=== PATIENT | female | born 2000 | race Caucasian/White ===

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

== ENCOUNTER 2022-02-13 11:47 | Emergency (ER) | payer BC, SELFPAY ==
--- NOTE | ~2022-02-13 | XR_ITS ---
XR foot RT min 3V 02/13/2022 12:23 INDICATION: Right foot pain PROCEDURE: 4 views right foot COMPARISON: No prior studies for comparison. FINDINGS: Fracture, dislocation or subluxation is not identified. The soft tissues appear within norm al limits. No foreign bodies are identified. IMPRESSION: 1: NO ACUTE BONE OR JOINT ABNORMALITY IDENTIFIED. Reviewed, dictated and finalized at location A.
--- NOTE | 2022-02-13 11:58 | ED.GENADULT ---
HPI - General Adult General Chief complaint: Extremity Problem,Nontraumatic Stated complaint: right foot pain, left ear mole Time Seen by Provider: 02/13/22 11:59 Source: patient, RN notes reviewed and old records reviewed Mode of arrival: ambulatory Limitations: no limitations History of Present Illness HPI narrative: 21 year old female who presents to [facility] care with complaints of pain to her right foot since Wednesday to the arch of foot. Patient denies any injury to her foot and states that pain increases with walking. Patient reports that she wears flip flops most of the time. Patient also states mole on her left earlobe that she has had for several month and wants it looked at. No pain to area where mole located, no irritation around mole or any bleeding noted patient states no pain to site. Patient reports that she has taken some Ibuprofen for her right foot pain.Poor historian. complaint: complaints of right foot pain Onset (ago): day(s) (4) Location: right and lower extremity (arch of foot) Treatments prior to arrival: NSAID Related Data Home Medications Medication Instructions Recorded Confirmed medroxyprogesterone 150 mg/mL 150 mg IM [id number] 02/06/21 08/14/21 intramuscular suspension (Depo-Provera) Allergies Allergy/AdvReac Type Severity Reaction Status Date / Time No Known Allergies Allergy Verified 02/13/22 11:58 Review of Systems Review of Systems: CONSTITUTIONAL: Denies fever, chills, or sweats. EYES: Denies visual changes, redness, or discharge. ENT: Denies rhinorrhea, congestion, sore throat, or otalgia. CARDIOVASCULAR: Denies chest pain, palpitations, or edema. RESPIRATORY: Denies cough or dyspnea. GASTROINTESTINAL: Denies abdominal pain, nausea, vomiting, or diarrhea. GENITOURINARY: Denies dysuria or hematuria. SKIN: Denies rash or itching.has mole to the left ear lobe MUSCULOSKELETAL: Denies back pain,positive for right foot pain in plantar arch region, or myalgia. NEUROLOGIC: Denies headache, numbness, or weakness. PSYCHIATRIC: Positive for history of anxiety or depression. All systems reviewed & are unremarkable except as noted in HPI and below PMFSH Past Medical History Medical History Anxiety and depression Depression with anxiety Eczema of eyelid Family history of hypothyroidism GERD without esophagitis Insomnia Irritable bowel syndrome with diarrhea Seasonal allergies Unilateral congenital absence of kidney Family History Family History Father Depression Anxiety Mother Diabetes mellitus Thyroid condition Grandparent Hypertension Anxiety Depression Heart disease Social History Social History Social History: Patient lives with her mother and brother in [place]. She is a senior at [employer], she plans to attend [employer] in , studying education. Alcohol intake: never Substance use: never Substance use type: does not use Agree to blood products: Yes Comments At time of signature, agree with nursing past medical, surgical, social and family history. There is no relevant family history pertinent to the presenting complaint Exam Narrative: GENERAL: Well-appearing, well-nourished, and in no acute distress. HEAD: Normocephalic, atraumatic. EYES: PERRLA and EOMI. ENT: Nares clear, no rhinorrhea or epistaxis. Mucous membranes moist.TM's normal with good light reflex, throat pink with no lesions or exudate no tonsil swelling. NECK: Supple.no lymphadenopathy CHEST: Clear to auscultation. No respiratory distress. HEART: Regular rate and rhythm. No murmur heard. Normal peripheral pulses. ABDOMEN: Soft, nontender, nondistended, normal active bowel sounds. EXTREMITIES: Normal range of motion. No edema noted, Pain to arch of her right foot which increases with ambula
[2022-02-13 12:00] VITALS: BP 145/93; PULSE 102; RESP 16; TEMP 36.6; O2SAT 100
== END 2022-02-13 13:04 | disposition home or self-care (01) ==
PROVIDERS: Emergency Provider Registered Nurse; PCP Nurse Practitioner Family
DX: M72.2 Plantar fascial fibromatosis (principal); D22.22 Melanocytic nevi of left ear and external auricular canal; K21.9 Gastro-esophageal reflux disease without esophagitis; Q60.0 Renal agenesis, unilateral
CPT/HCPCS: 73630; 99213; G0463

== ENCOUNTER 2023-08-25 15:08 | Outpatient (CLI) | payer BC, SELFPAY ==
[2023-08-25 17:54] LABS: Basophils Absolute Auto 0.1 K/mm3 (0.0-0.1); Basophils Percent Auto 0.7 % (0.2-1.2); Eosinophils Absolute Auto 0.4 K/mm3 (0-0.3); Eosinophils Percent Auto 3.6 % (0-4.4); Hematocrit 43.2 % (37.0-47.0); Hemoglobin 13.6 g/dL (12.0-15.0); Immature Granulocyte Absolute 0.04 K/mm3 (0.00-0.031); Immature Granulocyte Percent A 0.4 % (0-0.5); Lymphocytes Absolute Auto 2.87 K/mm3 (0.9-3.2); Lymphocytes Percent Auto 28.3 % (18.3-44.2); Mean Corpuscular HGB Conc 31.5 g/dl (32-36); Mean Corpuscular Volume 88.9 fl (80-100); Mean Platelet Volume 11.8 fl (7.4-10.4); Monocytes Absolute Auto 0.8 K/mm3 (0.1-0.6); Monocytes Percent Auto 8.2 % (2.6-8.5); Neutrophils Percent Auto 58.8 % (45.5-73.1); Platelet Count Result 244 k/mm3 (150-375); Red Blood Count 4.86 M/mm3 (4.2-5.4); Red Cell Distribution Width 13.2 % (11.5-14.5); White Blood Count 10.2 K/mm3 (4.5-10.0)
[2023-08-25 18:49] LABS: Alanine Aminotransferase 25 U/L (6-35); Albumin Level 4.4 g/dL (3.5-5.1); Alkaline Phosphatase 109 U/L (38-126); Anion Gap 9 mmol/L (8-16); Aspartate Amino Transferase 50 U/L (14-36); Bilirubin,Total 0.4 mg/dL (0.2-1.3); Blood Urea Nitrogen 11 mg/dL (7-17); Calcium 9.5 mg/dL (8.4-10.2); Carbon Dioxide 26 mmol/L (22-30); Chloride 108 mmol/L (98-107); Estimated Glomerular Filt Rate > 60; Glucose 68 mg/dL (65-110); Sodium 143 mmol/L (137-145)
[2023-08-25 19:11] LABS: Vitamin D 25 Hydroxy 26.2 ng/mL
== END 2023-08-25 15:09 | disposition home or self-care (01) ==
LOC: ANHGOSHLAB 15:09
PROVIDERS: PCP Family Medicine; Visit Provider Nurse Practitioner Family
DX: Z00.00 Encounter for general adult medical examination without abnormal findings (principal); F41.8 Other specified anxiety disorders; K58.0 Irritable bowel syndrome with diarrhea; R25.2 Cramp and spasm; R42 Dizziness and giddiness; E55.9 Vitamin D deficiency, unspecified; E53.8 Deficiency of other specified B group vitamins
CPT/HCPCS: 36415; 80053; 82306; 82607; 83735; 85025

== ENCOUNTER 2024-01-21 01:58 | Day surgery (SDC) | payer BC, SELFPAY ==
[2024-01-07 12:23] VITALS: BMI 38.9
[2024-01-21 12:56] VITALS: BP 121/79; PULSE 92; RESP 16; TEMP 36.6; O2SAT 100
[2024-01-21] MEDS: LACTATED RINGERS 1,000 ML 150 ML IV CONT (13:11)
--- NOTE | 2024-01-21 14:10 | PM.HPGS ---
History of Present Illness History of Present Illness Consent: Risks, benefits, and alternatives have been discussed and questions answered. Patient agrees to proceed with procedure. Chief complaint: Noninfective gastroenteritis and colitis, unspecif Narrative: Zandra Carrion is a 23 year old female here for first colonoscopy, h/o chronic diarrhea prescribed colestipol Review of Systems Review of Systems: All systems reviewed & are unremarkable except as noted in HPI and below PMFSH Past Medical History Medical History Anxiety Anxiety and depression B12 deficiency Chronic vertigo Depression with anxiety Eczema of eyelid Family history of hypothyroidism GERD without esophagitis IBS (irritable bowel syndrome) Infrequent bowel movements Insomnia Irritable bowel syndrome with diarrhea Lesion of earlobe Seasonal allergies Unilateral congenital absence of kidney Vertigo Family History Family History Father Depression Anxiety Mother Diabetes mellitus Thyroid condition Grandparent Hypertension Anxiety Depression Heart disease Social History Social History Social History: Patient lives with her mother and brother in [place]. She is a senior at [employer], she plans to attend [employer] in , studying education. Smoking status: Never smoker Alcohol intake: never Substance use: never Substance use type: does not use Lack of Transportation: No Lack of Food: Never True Current Housing: I Have Housing Concerned About Future Housing: No Difficulty Paying Gas/Electric Bills: No Difficulty Paying for Meds: No Currently Unemployed: No Education: High School Diploma/GED Difficulty w/ Childcare or Family Care: No Living arrangements: with family Occupation/Education: student Spiritual care concerns: No Agree to blood products: Yes Meds Home Medications and Allergies Home Medications Medication Instructions Recorded Confirmed Type medroxyprogesterone 150 mg/mL 150 mg IM [id number] 02/06/21 01/21/24 History intramuscular suspension (Depo-Provera) buspirone 5 mg tablet 5 mg PO BID PRN anxiety #60 tabs 08/25/23 01/21/24 Rx escitalopram oxalate 10 mg tablet 10 mg PO DAILY #90 tabs 12/03/23 01/21/24 Rx (Lexapro) mirtazapine 15 mg tablet 15 mg PO DAILY 12/03/23 01/21/24 History colestipol 1 gram tablet 1 g PO BID #60 tabs 12/17/23 01/21/24 Rx Allergies Allergy/AdvReac Type Severity Reaction Status Date / Time No Known Allergies Allergy Verified 01/21/24 12:49 Vital Signs Vital Signs - 24 hr 01/21/24 12:56 Temperature 97.8 F Pulse Rate 92 Respiratory Rate 16 Blood Pressure 121/79 Pulse Oximetry 100 Oxygen Delivery Room Air Exam Const: General: comfortable and no acute distress HENMT: Face/Nose/Sinus: Normal nares present Eyes: General: appearance normal, both eyes and all related structures Neck: Neck: no JVD Resp: Auscultation: clear to auscultation bilaterally Cardio: Rate: regular rate Rhythm: regular rhythm GI: Inspection: non-distended GI Palp: Yes Soft to palpation Skin: General skin exam: normal color Neuro: General: gait normal Speech: normal speech Extrem: General: normal to inspection Psych: Mental Status: mental status grossly normal Assessment and Plan Assessment and plan (1) Chronic diarrhea: Code(s): K52.9 - Noninfective gastroenteritis and colitis, unspecified Status: Acute Assessment and Plan: colonoscopy
--- NOTE | 2024-01-21 14:11 | WPDANESEPPF ---
Anes - Initial Pre Proc Eval Procedure: Operation Date: 01/21/24 14:00 Proposed Procedures p Colonoscopy - Moody Maria MD Date/Time: 01/21/24 14:11 Surgeon: Moody Maria MD Pre Op Diagnosis: Noninfective gastroenteritis and colitis, unspecif Patient Data Age: 23 Gender: F Height: 1.78 m Weight: 119.6 kg Last Vital Signs Temp 97.8 F 01/21/24 12:56 Pulse 92 01/21/24 12:56 Resp 16 01/21/24 12:56 BP 121/79 01/21/24 12:56 Pulse Ox 100 01/21/24 12:56 O2 Del Method Room Air 01/21/24 12:56 Allergies Allergy/AdvReac Type Severity Reaction Status Date / Time No Known Allergies Allergy Verified 01/21/24 12:49 Home Medications Medication Instructions Recorded Confirmed Type medroxyprogesterone 150 mg/mL 150 mg IM [id number] 02/06/21 01/21/24 History intramuscular suspension (Depo-Provera) buspirone 5 mg tablet 5 mg PO BID PRN anxiety #60 tabs 08/25/23 01/21/24 Rx escitalopram oxalate 10 mg tablet 10 mg PO DAILY #90 tabs 12/03/23 01/21/24 Rx (Lexapro) mirtazapine 15 mg tablet 15 mg PO DAILY 12/03/23 01/21/24 History colestipol 1 gram tablet 1 g PO BID #60 tabs 12/17/23 01/21/24 Rx Patient hx anesthesia problems: none Family hx anesthesia problems: none Results Review: All pre-operative results and documents have been reviewed as part of the pre-operative evaluation. FOR[facility]LY [facility], [facility] Past Medical History Medical History Anxiety Anxiety and depression B12 deficiency Chronic vertigo Depression with anxiety Eczema of eyelid Family history of hypothyroidism GERD without esophagitis IBS (irritable bowel syndrome) Infrequent bowel movements Insomnia Irritable bowel syndrome with diarrhea Lesion of earlobe Seasonal allergies Unilateral congenital absence of kidney Vertigo Family History Family History Father Depression Anxiety Mother Diabetes mellitus Thyroid condition Grandparent Hypertension Anxiety Depression Heart disease Social History Social History Social History: Patient lives with her mother and brother in [place]. She is a senior at [employer], she plans to attend [employer] in , studying education. Smoking status: Never smoker Alcohol intake: never Substance use: never Substance use type: does not use Lack of Transportation: No Lack of Food: Never True Current Housing: I Have Housing Concerned About Future Housing: No Difficulty Paying Gas/Electric Bills: No Difficulty Paying for Meds: No Currently Unemployed: No Education: High School Diploma/GED Difficulty w/ Childcare or Family Care: No Living arrangements: with family Occupation/Education: student Spiritual care concerns: No Agree to blood products: Yes Anes - Eval Final PreProcedure Day of Procedure 01/21/24 14:11 Patient weight: morbidly obese Heart: regular rate and rhythm Lungs: clear to auscultation Airway: Mallampati scale class II Neurological: alert and oriented Last oral intake: >/= 8 hours ASA classification: III Emergent: no Anesthetic plan: proceed Anesthesia type and monitoring: general GIVS and standard monitoring Results Review: All pre-operative results and documents have been reviewed as part of the pre-operative evaluation. Informed Consent: The patient's anesthetic plan and its attendant risks and benefits were discussed with the patient/family/POA. Questions were solicited and answers provided to the satisfaction of the patient/family/POA.
[2024-01-21 14:33] VITALS: BP 107/52; PULSE 77; RESP 22; O2SAT 100
[2024-01-21 14:43] VITALS: BP 85/62; PULSE 67; RESP 20; O2SAT 100
[2024-01-21 14:53] VITALS: BP 109/85; PULSE 83; RESP 26; O2SAT 100
[2024-01-21 15:03] VITALS: BP 120/76; PULSE 76; RESP 22; O2SAT 100
== END 2024-01-21 15:05 | disposition home or self-care (01) ==
PROVIDERS: PCP Nurse Practitioner Family; Referring Provider Nurse Practitioner; Visit Provider Internal Medicine Gastroenterology
PROC: 0DJD8ZZ Inspection of Lower Intestinal Tract, Via Natural or Artificial Opening Endoscopic (ICD-10-PCS; CPT 45378; principal; 2024-01-21 14:00)
DX: K58.0 Irritable bowel syndrome with diarrhea (principal); K64.8 Other hemorrhoids; F41.8 Other specified anxiety disorders
CPT/HCPCS: 45380; 88305; J2001; J2704; J7120

== ENCOUNTER 2024-05-02 17:35 | Emergency (ER) | payer BC, SELFPAY ==
--- NOTE | ~2024-05-02 | CT_ITS ---
EXAMINATION: CT abdomen pelvis w con DATE: 05/02/2024 20:47 INDICATION: RLQ tenderness TECHNIQUE: Computed tomography (CT) of the abdomen and pelvis was performed with 100 mL Omnipaque-350 intravenous contrast. Automated exposure control and iterative reconstruction technique were employe d. The dose-length product was 1488.47 mGy-cm. COMPARISON: None. FINDINGS: Lower thorax: Unremarkable Liver: Normal. Biliary/Gallbladder: Gallbladder is normal. No bile duct dilation. Pancreas: No mass or duct dilation. Spleen: Normal. Adrenals:No mass. Kidneys: No suspicious mass, obstructing stone, or hydronephrosis. Absent left kidney. GI tract: No small or large bowel dilation. Normal appendix. Mesentery/Peritoneum: No ascites, mass, or free air. Retroperitoneum: No mass. Pelvis: Pelvic organs are within normal limits. Soft Tissues: Small uncomplicated fat-containing umbilical hernia. Bones: No acute osseous finding. IMPRESSION: No acute abdominal pelvic process detected. Reviewed, dictated and finalized at location K.
[2024-05-02 17:40] VITALS: BP 144/91; PULSE 100; RESP 20; TEMP 36.3; O2SAT 100
[2024-05-02 20:00] LABS: BEDSIDEPREGUCG Negative (Negative)
[2024-05-02 20:06] LABS: Basophils Percent Auto 0.5 % (0.2-1.2); Eosinophils Absolute Auto 0.7 K/mm3 (0-0.3); Eosinophils Percent Auto 10.9 % (0-4.4); Hematocrit 43.6 % (37.0-47.0); Hemoglobin 14.3 g/dL (12.0-15.0); Immature Granulocyte Absolute 0.02 K/mm3 (0.00-0.031); Immature Granulocyte Percent A 0.3 % (0-0.5); Lymphocytes Absolute Auto 1.66 K/mm3 (0.9-3.2); Lymphocytes Percent Auto 25.9 % (18.3-44.2); Mean Corpuscular HGB Conc 32.8 g/dl (32-36); Mean Corpuscular Hemoglobin 29.1 pg (26-34); Mean Corpuscular Volume 88.8 fl (80-100); Mean Platelet Volume 11.2 fl (7.4-10.4); Monocytes Absolute Auto 0.8 K/mm3 (0.1-0.6); Monocytes Percent Auto 12.8 % (2.6-8.5); Neutrophils Absolute Auto 3.2 K/mm3 (1.3-6.7); Neutrophils Percent Auto 49.6 % (45.5-73.1); Platelet Count Result 234 k/mm3 (150-375); Red Blood Count 4.91 M/mm3 (4.2-5.4); Red Cell Distribution Width 13.2 % (11.5-14.5); White Blood Count 6.4 K/mm3 (4.5-10.0)
[2024-05-02 20:10] LABS: Add Urine Microscopic? YES; Appearance Urine Cloudy (Clear); Bacteria Urine 4+ /hpf; Bilirubin Urine Negative (Negative); Blood Urine Negative (Negative); Color Urine Dark Yellow (Yellow); Glucose Urine UA Negative (Negative); Ketones Urine Negative (Negative); Leukocyte Esterase Ur 1+ LEU/UL (Negative); Nitrate Urine Negative (Negative); Non Pathogenic Casts 0-2; Protein Urine 1+ mg/dL (Negative); RBC Urine 0-2 /hpf (0-2); Specific Grav Ur 1.027 (1.001-1.035); Squamous Epithelial Cell Urine Many /hpf (Few)
--- NOTE | 2024-05-02 20:10 | ED.DIZZY ---
HPI - Dizziness General Chief Complaint: Dizziness Stated Complaint: dizziness, nausea, vomiting Time Seen by Provider: 05/02/24 19:47 History of Present Illness HPI Narrative: Patient is a 23-year-old female presenting with vomiting, diarrhea, lightheadedness. States that she was started on buspirone approximately 5 days ago and since that time she has had a lot of vomiting and diarrhea. States that since yesterday she has felt lightheaded with standing. She was seen by urgent care today and they advised that she come in for further evaluation. She denies any pain. Denies dysuria or hematuria. Does complain of a cough and runny nose. Related Data Home Medications Medication Instructions Recorded Confirmed medroxyprogesterone 150 mg/mL 150 mg IM [id number] 02/06/21 04/13/24 intramuscular suspension (Depo-Provera) mirtazapine 15 mg tablet 15 mg PO DAILY 12/03/23 04/13/24 Allergies Allergy/AdvReac Type Severity Reaction Status Date / Time No Known Allergies Allergy Verified 04/13/24 09:39 Review of Systems Review of Systems: All systems reviewed & are unremarkable except as noted in HPI and below PMFSH Past Medical History Medical History Anxiety Anxiety and depression B12 deficiency Chronic vertigo Depression with anxiety Eczema of eyelid Family history of hypothyroidism GERD without esophagitis IBS (irritable bowel syndrome) Infrequent bowel movements Insomnia Irritable bowel syndrome with diarrhea Lesion of earlobe Seasonal allergies Unilateral congenital absence of kidney Vertigo Family History Family History Father Depression Anxiety Mother Diabetes mellitus Thyroid condition Grandparent Hypertension Anxiety Depression Heart disease Social History Social History Social History: Patient lives with her mother and brother in [place]. She is a senior at [employer], she plans to attend [employer] in , studying education. Smoking status: Never smoker Alcohol intake: never Substance use: never Substance use type: does not use Lack of Transportation: No Lack of Food: Never True Current Housing: I Have Housing Concerned About Future Housing: No Difficulty Paying Gas/Electric Bills: No Difficulty Paying for Meds: No Currently Unemployed: No Education: High School Diploma/GED Difficulty w/ Childcare or Family Care: No Living arrangements: with family Occupation/Education: student Spiritual care concerns: No Agree to blood products: Yes Exam Narrative: GENERAL: Nontoxic, no acute distress, pleasant cooperative HEAD: Normocephalic, atraumatic. EYES: PERRLA and EOMI. ENT: Mucous membranes moist. NECK: Supple. CHEST: Clear to auscultation. No respiratory distress. HEART: Regular rate and rhythm ABDOMEN: Soft, + right lower quadrant and suprapubic tenderness without guarding or rebound EXTREMITIES: Normal range of motion. No edema. SKIN: Warm, dry, no rash. NEURO: No focal deficits. Alert and oriented x3. PSYCH: Normal mood and affect. Course Vital Signs Vital signs: Vital Signs Temperature 97.4 F L 05/02/24 17:40 Pulse Rate 100 05/02/24 17:40 Respiratory Rate 20 05/02/24 17:40 Blood Pressure 144/91 H 05/02/24 17:40 Pulse Oximetry 100 05/02/24 17:40 Oxygen Delivery Room Air 05/02/24 17:40 Temperature 97.4 F L 05/02/24 17:40 Pulse Rate 100 05/02/24 17:40 Respiratory Rate 20 05/02/24 17:40 Blood Pressure 144/91 H 05/02/24 17:40 Pulse Oximetry 100 05/02/24 17:40 Oxygen Delivery Room Air 05/02/24 17:40 MDM - Dizziness MDM Narrative Medical decision making narrative: 23-year-old female presenting with vomiting, diarrhea. She is mildly tender in her right lower quadrant on exam.
[2024-05-02] MEDS: SODIUM CHLORIDE 0.9% IV 1,000 ML 999 ML IV CONT (20:12)
[2024-05-02 20:13] LABS: Alanine Aminotransferase 27 U/L (6-35); Albumin Level 5.1 g/dL (3.5-5.1); Alkaline Phosphatase 100 U/L (38-126); Anion Gap 14 mmol/L (4-12); Aspartate Amino Transferase 29 U/L (14-36); Bilirubin,Total 0.4 mg/dL (0.2-1.3); Blood Urea Nitrogen 11 mg/dL (7-17); Calcium 9.5 mg/dL (8.4-10.2); Carbon Dioxide 24 mmol/L (22-30); Chloride 101 mmol/L (98-107); Estimated CRCL calculation 135 ml/min; Estimated Glomerular Filt Rate > 60; Glucose 109 mg/dL (65-110); Lipase 128 U/L (23-300); Potassium 3.8 mmol/L (3.4-5.0); Sodium 139 mmol/L (137-145)
[2024-05-02] MEDS: ONDANSETRON INJ 4 MG/2 ML VIAL IV PUSH (20:20)
[2024-05-02 20:41] VITALS: BP 140/88; PULSE 102; RESP 20; O2SAT 100
[2024-05-02 21:29] LABS: Influenza A QL RT-PCR Negative (Negative); Influenza B QL RT-PCR Negative (Negative); RSV RNA, RT-PCR Negative (Negative); SARS-CoV-2 RNA PCR Positive (Negative)
== END 2024-05-02 22:01 | disposition home or self-care (01) ==
PROVIDERS: Emergency Provider Emergency Medicine; PCP Nurse Practitioner Family
DX: U07.1 COVID-19 (principal); R11.2 Nausea with vomiting, unspecified; R19.7 Diarrhea, unspecified; E53.8 Deficiency of other specified B group vitamins; K21.9 Gastro-esophageal reflux disease without esophagitis; K58.0 Irritable bowel syndrome with diarrhea; F41.8 Other specified anxiety disorders; Q60.0 Renal agenesis, unilateral; Z79.899 Other long term (current) drug therapy
CPT/HCPCS: 36415; 74177; 80053; 81001; 81025; 83690; 85025; 87086; 87088; 87637; 96361; 96374; 99284; J2405; J7030; Q9967

== ENCOUNTER 2024-06-26 15:16 | Emergency (ER) | payer BC, SELFPAY ==
[2024-06-26 15:24] VITALS: BP 120/80; PULSE 92; RESP 16; TEMP 36.1; O2SAT 100
--- NOTE | 2024-06-26 16:12 | ED.GENADULT ---
HPI - General Adult General Chief complaint: Unspecified Stated complaint: Left Side Pain Time Seen by Provider: 06/26/24 15:45 Source: patient Mode of arrival: ambulatory Limitations: no limitations History of Present Illness HPI narrative: Patient is a 23-year-old female who presents with left side abdominal pain since Wednesday. 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 Patient reports movement worsens pain her lung with palpation. Denies any nausea, vomiting, diarrhea, constipation, blood in urine, history of kidney stones. Patient states she has had normal bowel movements every day since. States Aleve helps pain for a few hours. Related Data Home Medications Medication Instructions Recorded Confirmed medroxyprogesterone 150 mg/mL 150 mg IM [id number] 02/06/21 06/26/24 intramuscular suspension (Depo-Provera) mirtazapine 15 mg tablet 15 mg PO DAILY 12/03/23 06/26/24 Allergies Allergy/AdvReac Type Severity Reaction Status Date / Time No Known Allergies Allergy Verified 06/26/24 16:04 Review of Systems Review of Systems: All systems reviewed & are unremarkable except as noted in HPI and below Constitutional: Constitutional: Denies body ache(s), Denies chills, Denies fatigue, Denies fever(s), Denies headache(s), Denies malaise and Denies weakness Eyes: Eyes: Denies blurry vision, Denies irritation and Denies loss of vision ENT: Denies otalgia, Denies headache(s), Denies nasal discharge, Denies sinus pain and Denies sore throat Cardiovascular: Cardiovascular: Denies chest pain, Denies irregular heart rhythm and Denies dyspnea Respiratory: Respiratory: Denies dyspnea Gastrointestinal: Gastrointestinal: Denies abdominal pain, Denies melena, Denies hematochezia, Denies diarrhea, Denies nausea and Denies vomiting Musculoskeletal: Musculoskeletal: Denies back pain, Reports myalgias and Denies arthralgias Integumentary/Breasts: Skin/Breast: Denies pruritus and Denies rash Neurologic: Denies headache(s), Denies loss of vision and Denies weakness Psychiatric: Psychiatric: Reports no additional psychiatric complaints Endocrine: Endocrine: Denies fatigue PMFSH Past Medical History Medical History Anxiety Anxiety and depression B12 deficiency Chronic vertigo Depression with anxiety Eczema of eyelid Family history of hypothyroidism GERD without esophagitis IBS (irritable bowel syndrome) Infrequent bowel movements Insomnia Irritable bowel syndrome with diarrhea Lesion of earlobe Seasonal allergies Unilateral congenital absence of kidney Vertigo Family History Family History Father Depression Anxiety Mother Diabetes mellitus Thyroid condition Grandparent Hypertension Anxiety Depression Heart disease Social History Social History Social History: Patient lives with her mother and brother in [place]. She is a senior at [employer], she plans to attend [employer] in , studying education. Smoking status: Never smoker Alcohol intake: never Substance use: never Substance use type: does not use Lack of Transportation: No Lack of Food: Never True Current Housing: I Have Housing Concerned About Future Housing: No Difficulty Paying Gas/Electric Bills: No Difficulty Paying for Meds: No Currently Unemployed: No Education: High School Diploma/GED Difficulty w/ Childcare or Family Care: No Living arrangements: with family Occupation/Education: student Spiritual care concerns: No Agree to blood products: Yes Comments At time of signature, agree with nursing past medical, surgical, social and family history. There is no relevant family history pertinent to the presenting complaint. Exam Const: General: cooperative, healthy appearing, comfortable, no acute distress and well nourished Nutritional Appearance: well nourished Orientation/consciousness: patient oriented x3 Limitations: no limitations HENMT: Head: normal to inspection, normocephalic and atraumatic Ears: hearing grossly normal bilaterally and external ears normal Face/Nose/Sinus: Normal external nose present, normal facial exam and face symmetric Face and sinus: normal facial exam and face symmetric Mouth: Yes lip normal Eyes: General: appearance normal, both eyes and all related structures Alignment and Position: alignment normal and position normal Periorbital: periorbital findings normal Eyelids: eyelids normal Pupils: Equal, round and reactive pupils present EOM: EOMs intact bilaterally Neck: Neck: normal visual inspection, full ROM and supple Chest: Chest palpation & inspection: normal inspection of the chest Resp: Effort & Inspection: normal respiratory effort and able to speak in complete sentences Auscultation: clear to auscultation bilaterally Cardio: Rate: regular rate Rhythm: regular rhythm Heart sounds: S1 normal heart sound present and S2 normal heart sound present GI: Inspection: normal to inspection GI Palp: Yes abdominal tenderness (Left burn lower quadrants), Yes Soft to palpation, No Firmness to palpation present (GI) and No Guarding due to palpation present (GI) Auscultation: normal bowel sounds Rectal Exam: deferred : General: Yes no CVA tenderness Skin: General skin exam: normal color and no rashes or lesions noted Neuro: General: patient oriented x3 and moves all extremities Cranial nerves: Yes Equal, round and reactive pupils present Speech: normal speech Gait exam (Neuro): Normal gait present Extrem: General: normal to inspection, full ROM and no edema Psych: Appearance: grossly normal and well kempt Mental Status: mental status grossly normal Speech and movement: Normal speech and movement present Affect: normal affect Attitude: cooperative Thought process: Normal thought process present Course Course Emergency Course: Patient is aware of diagnosis, understands and agrees to treatment plan. Anticipatory guidance given. Patient agrees to follow-up as directed and is aware of reasons to seek care at the emergency department. Portions of this record may have been created with voice recognition software Level of Care: Express Care Visit Vital Signs Vital signs: Vital Signs Temperature 36.1 C L 06/26/24 15:24 Pulse Rate 92 06/26/24 15:24 Respiratory Rate 16 06/26/24 15:24 Blood Pressure 120/80 06/26/24 15:24 Pulse Oximetry 100 06/26/24 15:24 Oxygen Delivery Room Air 06/26/24 15:24 Temperature 36.1 C L 06/26/24 15:24 Pulse Rate 92 06/26/24 15:24 Respiratory Rate 16 06/26/24 15:24 Blood Pressure 120/80 06/26/24 15:24 Pulse Oximetry 100 06/26/24 15:24 Oxygen Delivery Room Air 06/26/24 15:24 Reviewed Medical Decision Making MDM Narrative Medical decision making narrative: Exam findings show no acute concerns or changes; patient is non-toxic appearing and is in no distress.? Patient is appropriate for outpatient treatment and follow-up. Discharge instructions reviewed with patient, as well as provided in writing per nursing staff. The instructions also include specific and strict return/GO TO THE ER as well as f/u information. All questions have been answered, and the patient deny any further questions with discharge and discharge plan. Differential Diagnosis Differential Diagnosis: Constipation, diverticulitis, kidney stone, muscle strain, gastroenteritis Medical Records Medical records reviewed: Yes I reviewed the external patient's medical records. Vital Signs Vital Signs: Vital Signs Temperature 36.1 C L 06/26/24 15:24 Pulse Rate 92 06/26/24 15:24 Respiratory Rate 16 06/26/24 15:24 Blood Pressure 120/80 06/26/24 15:24 Pulse Oximetry 100 06/26/24 15:24 Oxygen Delivery Room Air 06/26/24 15:24 Temperature 36.1 C L 06/26/24 15:24 Pulse Rate 92 06/26/24 15:24 Respiratory Rate 16 06/26/24 15:24 Blood Pressure 120/80 06/26/24 15:24 Pulse Oximetry 100 06/26/24 15:24 Oxygen Delivery Room Air 06/26/24 15:24 Reviewed Discharge Plan Discharge Clinical Impression: Abdominal muscle strain Patient Disposition: Home, Self-Care Condition: Stable Instructions: Muscle Strain (ED) Additional Instructions: Avoid activities that cause pain until the pain subsides. Ice to the area 20-30 minutes 4-6 times a day Take steroids in the morning with food. Use muscle relaxers as needed. They will make you sleepy so do not drive while taking them. Use lidocaine patches 12 hours on 12 hours off Follow up with your primary care provider if the condition is not improving within 1 week. If the condition worsens with numbness, tingling, decrease sensation with weakness seek treatment in the emergency room immediately. Prescriptions: New prednisone 20 mg tablet 40 mg PO DAILY 5 Days Qty: 10 0RF baclofen 10 mg tablet 10 mg PO BID Qty: 10 0RF lidocaine 5 % adhesive patch,medicated 1 patch topical DAILY Qty: 15 0RF Rx Instructions: leave on most painful area for up to 12 hrs No Action medroxyprogesterone [Depo-Provera] 150 mg/mL suspension 150 mg IM [id number] buspirone 5 mg tablet 5 mg PO BID PRN (Reason: anxiety) Qty: 60 3RF mirtazapine 15 mg tablet 15 mg PO DAILY colestipol 1 gram tablet 1 g PO BID 90 Days Qty: 180 3RF escitalopram oxalate [Lexapro] 10 mg tablet 10 mg PO DAILY Qty: 30 0RF Rx Instructions: LAST REFILL UNTIL SEEN Follow-up/Referrals: Tena,Luz Clayton, TAKE OUT WAITER [Primary Care Provider] - 3 Days Stand Alone Forms: Work/School Release IP Time of Disposition: 16:17
== END 2024-06-26 16:30 | disposition home or self-care (01) ==
PROVIDERS: Emergency Provider Nurse Practitioner Family; PCP Nurse Practitioner Family
DX: S39.011A Strain of muscle, fascia and tendon of abdomen, initial encounter (principal); E03.9 Hypothyroidism, unspecified; Z79.899 Other long term (current) drug therapy; X58.XXXA Exposure to other specified factors, initial encounter
CPT/HCPCS: 99213; G0463

== ENCOUNTER 2025-06-21 19:23 | Emergency (ER) | payer OTHER, SELFPAY ==
[2025-06-21 19:32] VITALS: BP 141/91; PULSE 99; RESP 16; TEMP 36.9; O2SAT 99
[2025-06-21 19:52] LABS: EDSTREPNEGPOS1 Negative (Negative)
--- NOTE | 2025-06-21 20:05 | ED_ITS ---
HPI - URI/Sore Throat General Chief Complaint: Upper Respiratory Infection Stated Complaint: SORE THROAT Time Seen by Provider: 06/21/25 19:40 Source: patient Mode of arrival: ambulatory Limitations: no limitations History of Present Illness HPI Narrative: Elo is a 24-year-old female patient presenting to the clinic today with complaints of sore throat times 2-3 days. She reports no nasal drainage but does have a slight cough. 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 Denies any fevers, chills, body aches. Has not taken any medications for her pain MD elicited complaint: sore throat and nasal congestion Related Data Home Medications ?Medication ?Instructions ?Recorded ?Confirmed ?Last Taken ?Type medroxyprogesterone 150 mg/mL 150 mg IM [id number] 02/0606/21/25 12/17/23 History intramuscular suspension (Depo-Provera) mirtazapine 15 mg tablet 15 mg PO DAILY 12/03/2302/0701/19/24 History Allergies Allergy/AdvReac Type Severity Reaction Status Date / Time No Known Allergies Allergy Verified 06/21/25 19:40 Review of Systems Review of Systems: Pertinent positives per HPI. Patient denies any fever, chills, rash, headache, visual changes, dizziness, shortness of breath, chest pain, palpitations, nausea, vomiting, diarrhea, constipation, abdominal pain, or any urinary issues. [facility] Past Medical History Medical History B12 deficiency Vertigo Infrequent bowel movements Anxiety IBS (irritable bowel syndrome) Chronic vertigo Lesion of earlobe Eczema of eyelid Seasonal allergies Irritable bowel syndrome with diarrhea GERD without esophagitis Insomnia Depression with anxiety Family history of hypothyroidism Unilateral congenital absence of kidney Anxiety and depression Family History Family History Father Depression Anxiety Mother Diabetes mellitus Thyroid condition Grandparent Hypertension Anxiety Depression Heart disease Social History Social History Social History: Patient lives with her mother and brother in [place]. She is a senior at [employer], she plans to attend [employer] in , studying education. Alcohol intake: never Substance use: never Substance use type: does not use Lack of Transportation: No Lack of Food: Never True Current Housing: I Have Housing Concerned About Future Housing: No Difficulty Paying Gas/Electric Bills: No Difficulty Paying for Meds: No Currently Unemployed: No Education: High School Diploma/GED Difficulty w/ Childcare or Family Care: No Living arrangements: with family Occupation/Education: student Spiritual care concerns: No Agree to blood products: Yes Comments At the time of my signature, I reviewed and agree with the nursing past medical, surgical, social, and family history. There is no relevant family history pertinent to the patient complaint. Exam Narrative: General: Well-developed, well nourished, in no apparent distress Head: Normocephalic, atraumatic Eyes: Pupils equally round and reactive to light bilaterally, EOM intact, sclera and conjunctive clear, no discharge, lids normal Ears: TMs intact and clear, ear canals clear, no drainage, grossly hearing normal. Nose: Nares patent, no discharge, no inflammation, no sinus tenderness. Mouth: Oral pharynx without lesions or masses, good dentition, MMM. Neck: Supple, trachea midline, no enlargement of anterior or posterior cervical nodes, no thyroid masses or goiter palpable. Cardio: Regular rate and rhythm, s1 and s2 normal, no murmur appreciated. Resp: Clear to auscultation bilaterally, no rhonchi, rales, wheezing or rubs Course Course Emergency Course: Portions of this record may have been created with voice recognition software. Level of Care: Express Care Visit Vital Signs Vital signs: Vital Signs Temperature 36.9 C 06/21/25 19:32 Pulse Rate 99 06/21/25 19:32 Respiratory Rate 16 06/21/25 19:32 Blood Pressure 141/91 H 06/21/25 19:32 Pulse Oximetry 99 06/21/25 19:32 Oxygen Delivery Room Air 06/21/25 19:32 Temperature 36.9 C 06/21/25 19:32 Pulse Rate 99 06/21/25 19:32 Respiratory Rate 16 06/21/25 19:32 Blood Pressure 141/91 H 06/21/25 19:32 Pulse Oximetry 99 06/21/25 19:32 Oxygen Delivery Room Air 06/21/25 19:32 Vital signs reviewed MDM - URI/Sore Throat MDM Narrative Medical decision making narrative: At the time of visit patient is resting comfortably on the exam table. Patient appears to be nontoxic. Complaints of sore throat times 2-3 days. She reports no nasal drainage but does have a slight cough. 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 Denies any fevers, chills, body aches. Has not taken any medications for her pain. On exam patient has TMs that are intact and clear, nasal drainage, oral pharynx red with mild tonsillar enlargement, no cervical lymphadenopathy, heart rates regular rate and rhythm, lung sounds are clear. Strep test was ordered. Labs: Strep test was negative in the clinic today. We will send strep for culture. Plan: I suspect patient has acute pharyngitis. We will send strep for culture. Supportive measures were discussed with the patient and they voiced understanding discharge instructions and agrees to treatment plan. Return precautions reviewed Differential Diagnosis Differential diagnosis: Likely upper respiratory infection, otitis media, sinusitis, viral infection, bronchitis, influenza, pharyngitis and other (COVID) Lab Data Labs: Lab Results 06/21/25 Range/Units 19:49 POC Grp A Strep Screen Negative (Negative) Discharge Plan Discharge Clinical Impression: Pharyngitis Qualifiers: Pharyngitis/tonsillitis etiology: unspecified etiology Qualified Code(s): J02.9 - Acute pharyngitis, unspecified Patient Disposition: Home Condition: Stable Instructions: Antibiotic Form, Pharyngitis (ED) Additional Instructions: Strep test was negative in the clinic today. We will send strep for culture if this comes back positive we will contact him place you on antibiotics at that time. Increase fluids and stay well hydrated May take Tylenol or motrin as directed on bottle for pain/fever May use Flonase 1 spray in each nare daily May take OTC antihistamines such as Zyrtec or Claritin daily as directed on bottle May apply Vicks vapor rub to chest to open sinuses Sinus rinses for congestion Cepacol spray, cough drops, throat lozenges, warm tea with honey/lemon, gargle salt water to soothe throat BRAT diet for diarrhea Clear liquids x 24 hours then advance as tolerated for nausea/vomiting Go to the ED if you develop a worsening in your condition- high fever not controlled by Tylenol or Motrin, dehydration, weakness, lethargy, shortness of breath, or chest pain. Follow up with your PCP in 3-5 days if symptoms persist. Patient Language: St Helen[place] Prescriptions: No Action baclofen 10 mg tablet 10 mg PO BID Qty: 10 0RF medroxyprogesterone [Depo-Provera] 150 mg/mL suspension 150 mg IM [id number] buspirone 5 mg tablet 5 mg PO BID PRN (Reason: anxiety) Qty: 60 3RF mirtazapine 15 mg tablet 15 mg PO DAILY escitalopram oxalate [Lexapro] 10 mg tablet 10 mg PO DAILY Qty: 30 0RF Rx Instructions: LAST REFILL UNTIL SEEN colestipol 1 gram tablet See Rx Instructions .ROUTE .COMPLEX Qty: 180 1RF Dose Instruction: TALE 1 TABLET BY MOUTH TWICE DAILY Rx Instructions: TALE 1 TABLET BY MOUTH TWICE DAILY Follow-up/Referrals: Geneva Eller APRN [Primary Care Provider, [facility]] Time of Disposition: 19:55 Quality NIHSS Nursing Documentation ED NIHSS nursing documentation: reviewed/agree
== END 2025-06-21 19:58 | disposition home or self-care (01) ==
PROVIDERS: Emergency Provider Nurse Practitioner Family; PCP Nurse Practitioner Family
DX: J02.9 Acute pharyngitis, unspecified (principal); K21.9 Gastro-esophageal reflux disease without esophagitis; F41.9 Anxiety disorder, unspecified; F32.A Depression, unspecified; Q60.0 Renal agenesis, unilateral
CPT/HCPCS: 87081; 87880; 99213; G0463